=== PATIENT | female | born 1960 | race Two or more races ===

== ENCOUNTER 2021-01-09 17:30 | Emergency (ER) | payer MEDICARE, MEDICAID ==
[~2021-01-09] VITALS: Ht 160 cm; Wt 110.0 kg
--- NOTE | 2021-01-09 17:47 | NUR ---
BS 80
--- NOTE | 2021-01-09 18:18 | NUR ---
BS 240 AFTER D10 BOLUS. NO CHANGES IN MENTATION.
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
[2021-01-09] MEDS ORDERED: PLEASE ENTER ALLERGIES MC SCH (18:30)
[2021-01-09] MEDS ORDERED: DEXTROSE 10%, 250ML IV ONE ×2 (18:30)
[2021-01-09 18:42] LABS: BASOPHILS % (AUTO) 1 % (0-1); EOSINOPHILS % (AUTO) 1 % (1-7); LYMPHOCYTES % (AUTO) 16 % (22-44); MEAN CORPUSCULAR HEMOGLOBIN 28.5 pg (27.0-34.8); MEAN CORPUSCULAR HGB CONC 33.8 g/dL (32.4-35.8); MONOCYTES % (AUTO) 5 % (2-9); NEUTROPHILS % (AUTO) 77 % (42-75); PLATELET COUNT 193 x10^3/uL (130-400); RED BLOOD COUNT 4.22 x10^6/uL (3.82-5.3)
[2021-01-09 18:48] LABS: ALBUMIN 3.2 g/dL (3.4-5.0); ANION GAP 7 mmol/L (5-15); CALCIUM 8.7 mg/dL (8.5-10.1); CHLORIDE 112 mmol/L (98-107); CREATININE 0.63 mg/dL (0.55-1.02)
--- NOTE | 2021-01-09 18:49 | NUR ---
REPORT RECIEVED FROM BRITTNEY HERNADEZ. PT TO CT AT THIS TIME
--- NOTE | 2021-01-09 19:14 | NUR ---
PT AWOKEN BY TOUCH, ABLE TO HAVE FULL CONVERSATION WITH THIS RN. STATES FEELING BETTER, BUT FELL ASLEEP RIGHT AFTER CONVERSATION ENDED. PER FAMILY THIS IS THE MOST AWAKE SHE HAS BEEN SINCE ARRIVING. BLOOD SUGAR IS STABLE, PT ON ALL MONITORS, VSS. AWAITING CT RESULTS
--- NOTE | 2021-01-09 20:05 | NUR ---
pt able to walk to restroom with minimal assistance, provided sandwich at this time. pt awake and alert, talking and laughing with family member
[2021-01-09 20:44] VITALS: BP 110/57
== END 2021-01-09 21:33 | disposition home or self-care (01) ==
LOC: ED 18:00
DX: E10.641 Type 1 diabetes mellitus with hypoglycemia with coma (principal); R55 Syncope and collapse; R94.31 Abnormal electrocardiogram [ECG] [EKG]; Z79.4 Long term (current) use of insulin
CPT/HCPCS: 70450; 80048; 82040; 82962; 85025; 93005; 99285